=== PATIENT | male | born 1955 | race Caucasian/White ===

== ENCOUNTER 2017-03-25 00:11 | Day surgery (SDC) | payer MEDICARE, OTHER ==
[~2017-03-25] VITALS: Ht 175.3 cm; Wt 95.5 kg
[2017-03-25] VITALS (10 sets, daily range): BP systolic 102–137; BP diastolic 47–77; PULSE 53–59; RESP 16–18; O2SAT 96–99
[~2017-03-25 00:11] MED LIST: AMLO5TAB2 PO; CARV25TA2 PO; CINA30TA PO; DOXA4TAB3 PO; FRSM80T PO; SPIR25TA3 PO
--- NOTE | 2017-03-25 07:00 | NUR ---
ADMISSION NOTE MALE PT ADMITTED FOR FISTULOGRAM. DISCUSSED PLAN OF CARE WITH PT. SEE ADMIT AND FLOW SHEET
[2017-03-25 07:50] LABS: BASOPHILS % (AUTO) 0.5 % (0-3); EOSINOPHILS % (AUTO) 4.5 % (0-5); MONOCYTES % (AUTO) 6.6 % (4-12); Mean Corpuscular Hemoglobin 31.9 pg (27.0-35.0); Mean Corpuscular Volume 96.7 fL (81-100); NEUTROPHILS % (AUTO) 78.4 % (40-74); Platelet Count 218 bil/L (150-400)
[2017-03-25 08:04] LABS: INR 0.95 ratio
[2017-03-25] MEDS ORDERED: Heparin 5,000 Units/500 mL NS Premix IV ONE (08:16)
[2017-03-25] MEDS ORDERED: Heparin 1,000 Unit/mL 10 mL Inj ONE (08:16)
[2017-03-25] MEDS ORDERED: fentaNYL-PF 50 mCg/mL 2 mL Inj ONE (08:41)
--- NOTE | 2017-03-25 09:29 | DRSVH ---
PROCEDURE: AV FISTULA INDICATIONS: ESRD COMPARISON: None. Technique: 1. Fistulogram of the left upper extremity arteriovenous fistula. 2. Balloon angioplasty for a focal high-grade stenosis at the cephalic axillary vein confluence. 3. Completion fistulogram. The indications, alternatives, benefits, risks, and complications of the procedure were explained to the patient.. Informed written consent was obtained and placed in the chart. The patient was amina t to the angiography suite, and conscious sedation was administered intravenously by senior living staff, while continuous cardiorespiratory monitoring was performed. Maximum sterile barrier technique was employed per standard protocol, including hand hygiene, cap, ma sk, sterile gown and gloves, and 2% chlorhexidine. One percent lidocaine was used to anesthetize the skin over the area of interest. Using a micropuncture kit, the vein was accessed in antegrade fashio n. An 035 wire was advanced into the superior vena cava. The micropuncture sheath was exchanged for a short 6 [place] sheath. Balloon angioplasty was performed for a focal high-grade stenosis of the cent ral aspect of the cephalic vein stent with an 8 mm x 20 mm high-pressure balloon. Completion fistulog roshan was performed. Reflux fistulogram at the arteriovenous anastomosis was performed. FINDINGS: Initial fistulogram demonstrates a moderate to severe stenosis at the central aspect of th e cephalic vein stent at the confluence of the axillary and cephalic veins. Completion fistulogram de monstrates resolution of the stenosis. The arteriovenous anastomosis is patent. No other stenoses of the venous outflow. IMPRESSION: 1. Status post balloon angioplasty for a focal high-grade stenosis within the venous outflow of the l eft upper extremity fistula with resolution of the stenosis. Dictated by: Arielle Schreiber M.D. on 03/25/2017 at 9:19 Approved by: Arielle Schreiber M.D. on 03/25/2017 at 9:28
--- NOTE | 2017-03-25 11:45 | NUR ---
DISCHARGED TO HOME. SITE STABLE . INSTRUCTIONS GIVEN
== END 2017-03-25 23:59 | disposition home or self-care (01) ==
LOC: SOUO 00:11
PROVIDERS: ATTEND Radiology Vascular & Interventional Radiology
DX: I87.1 Compression of vein (principal); I12.0 Hypertensive chronic kidney disease with stage 5 chronic kidney disease or end stage renal disease; N18.6 End stage renal disease; Z99.2 Dependence on renal dialysis; D63.1 Anemia in chronic kidney disease; N40.0 Benign prostatic hyperplasia without lower urinary tract symptoms; N25.81 Secondary hyperparathyroidism of renal origin; Z95.828 Presence of other vascular implants and grafts
CPT/HCPCS: 36415; 36902; 80048; 85025; 85610; 85730; 99152; C1725; C1769; C1894; J1200; J1644; J2250; J3010; Q9967